=== PATIENT | female | born 1945 | race Caucasian/White ===

== ENCOUNTER 2018-04-11 06:39 | Day surgery (SDC) | payer MEDICARE, OTHER ==
[~2018-04-11] VITALS: Ht 162.6 cm; Wt 69.5 kg
[~2018-04-11 06:39] MED LIST: ALPR.25 PO; AMOX1XR PO; Advair Hfa 230-12 GM; Azor 10-20 MG1 EACH; CALTRATE 600 +1 EACH PO; CONEST.625 PO; CONESTTC VAG; FLUT.05NI; LEVSOD100 PO; LEVSOD88 PO; LORA1 PO; LOSA50 PO; NEPHROCAP PO; OMEG1CAP30; Omeprazole20 M1; TELM20 PO; TRAZ50 PO; VITAMIN D3 COM1 EACH PO
[2018-04-11] MEDS ORDERED: Potassium99 MG (07:30)
[2018-04-11] MEDS ORDERED: TEMA15 (07:30)
[2018-04-11] MEDS ORDERED: NEPHROCAPS QT1 EACH (07:31)
== END 2018-04-11 11:28 | disposition home or self-care (01) ==
LOC: ORSCSDS 06:39
PROVIDERS: Student in an Organized Health Care Education/Training Program
PROC: 0QSN04Z Reposition Right Metatarsal with Internal Fixation Device, Open Approach (ICD-10-PCS; principal; 2018-04-11 08:00)
PROC: 0SGP0ZZ (ICD-10-PCS; principal; 2018-04-11 08:00)
PROC: 0QSN0ZZ Reposition Right Metatarsal, Open Approach (ICD-10-PCS; principal; 2018-04-11 08:00)
PROC: 0QBN0ZZ Excision of Right Metatarsal, Open Approach (ICD-10-PCS; principal; 2018-04-11 08:00)
DX: M20.21 Hallux rigidus, right foot (principal); M20.41 Other hammer toe(s) (acquired), right foot; M21.621 Bunionette of right foot; M79.671 Pain in right foot; I10 Essential (primary) hypertension; E03.9 Hypothyroidism, unspecified; Z79.899 Other long term (current) drug therapy
CPT/HCPCS: C1776; J0690; J2250; J2405; J3010; J7120

== ENCOUNTER 2019-09-04 14:50 | Inpatient (IN) | payer MEDICARE, OTHER ==
[~2019-09-04] VITALS: Ht 162.6 cm; Wt 65.2 kg
[~2019-09-04 14:50] MED LIST changes: -Advair Hfa 230-12 GM; +Advair Hfa 230-12 GM INH; -CALTRATE 600 +1 EACH PO; +ERGO400 PO; +NEPHRO-VITE RX1 EACH PO; -Omeprazole20 M1; +Omeprazole20 M1 PO; +POTASSIUM99 MG PO; +TEMA15 PO
[2019-09-04 15:19] LABS: BASOPHILS ABSOLUTE AUTO 0.02 K/mm3 (0.00-0.23); BASOPHILS PERCENT AUTO 0 % (0-2); EOSINOPHILS ABSOLUTE AUTO 0.05 K/mm3 (0.00-0.68); EOSINOPHILS PERCENT AUTO 1 % (0-6); Hematocrit 36.9 % (33.0-51.0); Hemoglobin 12.6 g/dL (11.5-16.0); IMMATURE GRAN ABSOLUTE AUTO 0.03 K/mm3 (0.00-0.10); IMMATURE GRAN PERCENT AUTO 0 % (0-1); LYMPHOCYTES ABSOLUTE AUTO 1.81 K/mm3 (0.84-5.20); LYMPHOCYTES PERCENT AUTO 18 % (21-46); MONOCYTES ABSOLUTE AUTO 0.68 K/mm3 (0.16-1.47); MONOCYTES PERCENT AUTO 7 % (4-13); Mean Corpuscular HGB 31.9 pg (26.0-34.0); Mean Corpuscular HGB Conc 34.1 g/dL (31.5-36.5); Mean Corpuscular Volume 93 fL (80-100); Mean Platelet Volume 9.3 fL (9.1-12.4); NEUTROPHILS ABSOLUTE AUTO 7.37 K/mm3 (1.96-9.15); NEUTROPHILS PERCENT AUTO 74 % (41-73); Platelet Count 313 K/mm3 (150-400); RDW Coefficient Variation 12.4 % (11.7-14.2); RDW Standard Deviation 42.6 fL (35.1-46.3); Red Blood Cell Count 3.95 M/mm3 (3.80-5.20); White Blood Cell Count 9.96 K/mm3 (4.00-11.30)
[2019-09-04 15:46] LABS: Alanine Aminotransfer (ALT/SGP 15 U/L (12-78); Albumin, Blood 3.7 g/dL (3.4-5.0); Alk Phos 81 U/L (50-136); Anion Gap 10 mmol/L (6-16); Aspartate Aminotrans (AST/SGOT 13 U/L (12-37); Bilirubin, Total 0.5 mg/dL (0.1-1.0); Blood Urea Nitrogen 7 mg/dL (8-24); Bun/Creatinine Ratio 7.9 (12.0-20.0); CO2, Blood 24 mmol/L (21-32); Calcium, Blood 9.2 mg/dL (8.5-10.1); Chloride, Blood 93 mmol/L (98-108); Creatinine, Blood 0.88 mg/dL (0.40-1.00); Globulin, Blood 3.8 g/dL (2.2-4.0); Glomerular Filtration Rate >60 (60-); Glucose, Blood 143 mg/dL (70-99); Potassium, Blood 3.3 mmol/L (3.5-5.5); Sodium, Blood 127 mmol/L (136-145); Total Protein, Blood 7.5 g/dL (6.4-8.2)
[2019-09-04] MEDS ORDERED: LEVSOD125 PO (17:40)
[2019-09-04] MEDS ORDERED: ONDA4 PO (17:40)
[2019-09-04] MEDS ORDERED: TRAZ150T57 PO (17:40)
[2019-09-04] MEDS ORDERED: Azor 5-20 MG T1 EACH PO (17:42)
[2019-09-04 22:18] LABS: CHOL/HDL RATIO 2.8; Cholesterol 165 mg/dL (50-200); HDL Cholesterol 59 mg/dL (>39); LDL/HDL RATIO 1.5; Low Density Lipoprotein Chol 90 mg/dL (0-110); Triglycerides 82 mg/dL (30-160); Very Low Density Lipoprot Chol 16 mg/dL (6-32)
[2019-09-05 05:28] LABS: Hematocrit 31.7 % (33.0-51.0); Hemoglobin 10.7 g/dL (11.5-16.0); Mean Corpuscular HGB 31.8 pg (26.0-34.0); Mean Corpuscular HGB Conc 33.8 g/dL (31.5-36.5); Mean Corpuscular Volume 94 fL (80-100); Mean Platelet Volume 9.5 fL (9.1-12.4); Platelet Count 239 K/mm3 (150-400); RDW Coefficient Variation 12.7 % (11.7-14.2); RDW Standard Deviation 43.7 fL (35.1-46.3); Red Blood Cell Count 3.37 M/mm3 (3.80-5.20); White Blood Cell Count 6.46 K/mm3 (4.00-11.30)
--- NOTE | 2019-09-05 05:38 | NUR ---
ADMISSION NOTE/SHIFT SUMMARY PT NEW ER ADMIT EARLIER IN SHIFT. ARRIVED TO UNIT VIA STRETCHER, AMBULATED INDEPENDENTLY TO ROOM. ORIENTED PATIENT TO ROOM AND CALL LIGHT, ADMISSION COMPLETE. PT REPORTS INTERMITTENT N/V SINCE SUNDAY, WITH WORSENING SYMPTOMS SINCE YESTERDAY. PT REPORTS NOT BEING ABLE TO KEEP DOWN ANY FOOD OR FLUID. PAIN IS ACROSS UPPPER ABD, TENDER UPON PALPATION. STRICT NPO TO CONTROL PAIN, N/V. PT VERBALIZES UNDERSTANDING. PT RECIEVED 40 MEQ IV KCL, IV ZOSYN Q6H, 1 MG IV DILAUDID, PROTONIX DRIP, AND NS RUNNING @ 100 ML/HR X 1.5 BAG. TREATED FOR NAUSEA 1X WITH ZOFRAN AFTER RECIEVING PAIN MED. PT IS A&OX4, SBA IN . NO OTHER CHANGES TO REPORT. WILL CONT OT MONITOR AND PROVIDE CARE UNTIL PRESUMED BY ONCOMING RN.
[2019-09-05 06:02] LABS: Alanine Aminotransfer (ALT/SGP 12 U/L (12-78); Albumin, Blood 2.9 g/dL (3.4-5.0); Alk Phos 59 U/L (50-136); Anion Gap 5 mmol/L (6-16); Aspartate Aminotrans (AST/SGOT 5 U/L (12-37); Bilirubin, Total 0.4 mg/dL (0.1-1.0); Blood Urea Nitrogen 7 mg/dL (8-24); Bun/Creatinine Ratio 8.7 (12.0-20.0); CO2, Blood 27 mmol/L (21-32); Calcium, Blood 8.5 mg/dL (8.5-10.1); Chloride, Blood 101 mmol/L (98-108); Glomerular Filtration Rate >60 (60-); Glucose, Blood 111 mg/dL (70-99); Potassium, Blood 4.1 mmol/L (3.5-5.5); Sodium, Blood 133 mmol/L (136-145); Total Protein, Blood 5.9 g/dL (6.4-8.2)
--- NOTE | 2019-09-05 18:07 | NUR ---
NO ACUTE ISSUES NOTED. PATIENT TRIED A CLEAR LIQUID DINNER AND IS TOLERATING IT OK, SHE DID NOTE SOME MILD DISCONFORT BUT THINKS SHE JUST DRANK IT TO FAST. NO OTHER ISSUES NOTED AT THIS TIME. WILL CONTINUE TO MONITOR FOR CHANGES.
--- NOTE | 2019-09-05 19:50 | NUR ---
DISCOMFORT FOLLOWING CLEAR LIQUIDS PT REPORTS 4/10 SHARP PAIN TO UPPER ABD AFTER HAVING CLEAR BROTH. PT ALSO REPORTS NAUSEA, NO EMESIS. TREATED WITH 0.5 MG IV DILAUDID AND IV ZOFRAN. PROVIDES RELIEF. WILL CONT TO MONITOR.
[2019-09-06 04:43] LABS: Hematocrit 31.5 % (33.0-51.0); Hemoglobin 10.5 g/dL (11.5-16.0); Mean Corpuscular HGB 31.3 pg (26.0-34.0); Mean Corpuscular HGB Conc 33.3 g/dL (31.5-36.5); Mean Corpuscular Volume 94 fL (80-100); Mean Platelet Volume 9.1 fL (9.1-12.4); Platelet Count 211 K/mm3 (150-400); RDW Coefficient Variation 12.6 % (11.7-14.2); RDW Standard Deviation 43.6 fL (35.1-46.3); Red Blood Cell Count 3.36 M/mm3 (3.80-5.20); White Blood Cell Count 5.02 K/mm3 (4.00-11.30)
[2019-09-06 05:07] LABS: Anion Gap 7 mmol/L (6-16); Blood Urea Nitrogen 6 mg/dL (8-24); Bun/Creatinine Ratio 7.4 (12.0-20.0); CO2, Blood 25 mmol/L (21-32); Calcium, Blood 8.3 mg/dL (8.5-10.1); Chloride, Blood 103 mmol/L (98-108); Creatinine, Blood 0.81 mg/dL (0.40-1.00); Glomerular Filtration Rate >60 (60-); Glucose, Blood 82 mg/dL (70-99); Potassium, Blood 3.7 mmol/L (3.5-5.5); Sodium, Blood 135 mmol/L (136-145)
--- NOTE | 2019-09-06 05:27 | NUR ---
SHIFT SUMMARY PT TOLERATING WATER AND CHIPS WELL. DID NOT TOLERATE CHICKEN BROTH VERY WELL, IV DILAUDID AND IV ZOFRAN GIVEN ONCE AT START OF SHIFT FOR NAUSEA AND PAIN. ZOSYN DC'D; PROTONIX DC'D TONIGHT. PT A&OX4, INDEPENDENT IN RM. PT TO HAVE EGD TODAY PER DR IBARRA. NO OTHER CHANGES TO REPORT. WILL CONT TO MONITOR AND PROVIDE CARE UNTIL PRESUMED BY ONCOMING RN.
--- NOTE | 2019-09-06 08:52 | NUR ---
History, Chart, Medications and Allergies reviewed before start of procedure. Patient confirms NPO status and agrees with scheduled surgery. Lungs clear T/O to Auscultation. Pre-Op teaching done. Pt verbalizes understanding.
--- NOTE | 2019-09-06 09:14 | NUR ---
09/06/19 0914 Tonya Christy PATIENT DETERMINED TO BE ASA APPROPRIATE FOR PROPOFOL SEDATION PRIOR TO START OF PROCEDURE BY DR. IBARRA. 3-LEAD EKG REVIEWED WITH PHYSICIAN PRIOR TO START OF PROCEDURE. PATIENT CONFIRMS NPO STATUS AND AGREES WITH SCHEDULED PROCEDURE. History, Chart, Medications and Allergies reviewed before start of procedure. MONITOR INTACT WITH CONTINUOUS PULSE OXIMETRY AND INTERMITTENT BP. O2 VIA N/C INTACT THROUGHOUT SEDATION/PROCEDURE 3L NC. Bite Block Placed IMMEDIATELY PRESEDATION.
--- NOTE | 2019-09-06 18:02 | NUR ---
SHIFT SUMMARY NO ACUTE CHANGES. PATIENT DENIES PAIN, NAUSEA, AND SHORTNESS OF BREATH. ABDOMEN IS TENDER TO PALPATION. PATIENT TOLERATING CLEAR LIQUID DIET WELL. PATIENT HAD ENDOSCOPY THIS MORNING. PATIENT UP INDEPENDENT IN THE ROOM. CALL LIGHT IN REACH.
--- NOTE | 2019-09-06 22:33 | NUR ---
PT HAS NOT HAD BM FOR 6 DAYS. DISCUSSED WITH PT THAT A SUPPOSITORY WOULD BE APPROPRIATE AT THIS POINT, PT WAS AGREEABLE TO SUPPOSITORY. CALLED DR LANGFORD AND RECIEVED ORDER FOR DULCOLAX SUPPOSITORY. PT THEN REFUSED SUPPOSITORY UNTIL AM, STATING "I WANT TO SLEEP TONIGHT, NOT BE UP ALL NIGHT POOPING." EXPLAINED TO PT IT WOULD NOT KEEP HER UP ALL NIGHT AFTER BM, PT STILL INSISTS ON AM.
[2019-09-07 05:02] LABS: Hematocrit 31.1 % (33.0-51.0); Hemoglobin 10.6 g/dL (11.5-16.0); Mean Corpuscular HGB 31.7 pg (26.0-34.0); Mean Corpuscular HGB Conc 34.1 g/dL (31.5-36.5); Mean Corpuscular Volume 93 fL (80-100); Mean Platelet Volume 9.4 fL (9.1-12.4); Platelet Count 273 K/mm3 (150-400); RDW Coefficient Variation 12.6 % (11.7-14.2); RDW Standard Deviation 43.3 fL (35.1-46.3); Red Blood Cell Count 3.34 M/mm3 (3.80-5.20); White Blood Cell Count 5.34 K/mm3 (4.00-11.30)
--- NOTE | 2019-09-07 05:14 | NUR ---
SHIFT SUMMARY NO ACUTE CHANGES OVERNIGHT. PT HAS NOT HAD A BM FOR ONE WEEK NOW, WAS AGREEABLE TO SUPPOSITORY. AFTER GETTING SUPPOSITORY ORDERED, PT REFUSED IT AND REQUESTED TO WAIT TIL AM. PT DID DRINK 2 CUPS WARM PRUNE JUICE AND BUTTER, NO BM. TOLERATED THAT WELL, NO PAIN OR N/V ASSOCIATED WITH FULL LIQUID. WILL CONT TO MONITOR AND PROVIDE CARE UNTIL PRESUMED BY ONCOMING RN.
[2019-09-07 05:30] LABS: Anion Gap 10 mmol/L (6-16); Blood Urea Nitrogen 7 mg/dL (8-24); Bun/Creatinine Ratio 8.8 (12.0-20.0); CO2, Blood 24 mmol/L (21-32); Calcium, Blood 8.6 mg/dL (8.5-10.1); Chloride, Blood 100 mmol/L (98-108); Creatinine, Blood 0.79 mg/dL (0.40-1.00); Glomerular Filtration Rate >60 (60-); Glucose, Blood 108 mg/dL (70-99); Potassium, Blood 3.6 mmol/L (3.5-5.5); Sodium, Blood 134 mmol/L (136-145)
--- NOTE | 2019-09-07 13:28 | NUR ---
DISCHARGE DISCHARGE MEDICATION AND INSTRUCTIONS EXPLAINED TO PATIENT. PATIENT STATED UNDERSTANDING. CARE MANAGEMENT TO CALL PATIENT AT HOME WITH FOLLOW UP APPOINTMENTS WITH PCP AND DR. IBARRA. IV REMOVED WITHOUT DIFFICULTY. BELONGINGS WITH PATIENT. PATIENT AMBULATED TO PRIVATE VEHICLE.
== END 2019-09-07 13:25 | disposition home or self-care (01) | DRG 439 ==
LOC: ER 14:50 → MEDS 14:51 → ENPENDDIS 09-07 10:58 → MEDS 09-07 13:25
PROVIDERS: Internal Medicine; Internal Medicine Gastroenterology; Physician Assistant; ADMIT Internal Medicine
PROC: 0DB68ZX Excision of Stomach, Via Natural or Artificial Opening Endoscopic, Diagnostic (ICD-10-PCS; 2019-09-06)
PROC: 0DB98ZX Excision of Duodenum, Via Natural or Artificial Opening Endoscopic, Diagnostic (ICD-10-PCS; principal; 2019-09-06 09:30)
DX: K85.90 Acute pancreatitis without necrosis or infection, unspecified (principal); E87.1 Hypo-osmolality and hyponatremia; I10 Essential (primary) hypertension; K21.9 Gastro-esophageal reflux disease without esophagitis; E03.9 Hypothyroidism, unspecified; J45.909 Unspecified asthma, uncomplicated; E87.6 Hypokalemia; K44.9 Diaphragmatic hernia without obstruction or gangrene; K29.80 Duodenitis without bleeding
CPT/HCPCS: 36415; 74170; 76700; 80048; 80053; 80061; 82150; 83690; 85025; 85027; 88305; 88342; 96365; 96375; 99285-25; C9113; J0696; J1170; J1650; J2405; J2543; J2704; J3480; J7030; J7120; Q9967

== ENCOUNTER 2019-09-11 09:03 | Inpatient (IN) | payer MEDICARE, OTHER ==
[~2019-09-11] VITALS: Ht 162.6 cm; Wt 144.3 kg
[~2019-09-11 09:03] MED LIST changes: +Azor 5-20 MG T1 EACH PO; +LEVSOD125 PO; +ONDA4 PO; +TRAZ150T57 PO
[2019-09-11 09:32] LABS: BASOPHILS ABSOLUTE AUTO 0.03 K/mm3 (0.00-0.23); BASOPHILS PERCENT AUTO 0 % (0-2); EOSINOPHILS ABSOLUTE AUTO 0.01 K/mm3 (0.00-0.68); EOSINOPHILS PERCENT AUTO 0 % (0-6); Hematocrit 40.7 % (33.0-51.0); Hemoglobin 13.9 g/dL (11.5-16.0); IMMATURE GRAN ABSOLUTE AUTO 0.04 K/mm3 (0.00-0.10); IMMATURE GRAN PERCENT AUTO 0 % (0-1); LYMPHOCYTES ABSOLUTE AUTO 1.86 K/mm3 (0.84-5.20); LYMPHOCYTES PERCENT AUTO 15 % (21-46); MONOCYTES ABSOLUTE AUTO 0.98 K/mm3 (0.16-1.47); MONOCYTES PERCENT AUTO 8 % (4-13); Mean Corpuscular HGB 30.6 pg (26.0-34.0); Mean Corpuscular HGB Conc 34.2 g/dL (31.5-36.5); Mean Platelet Volume 9.3 fL (9.1-12.4); NEUTROPHILS ABSOLUTE AUTO 9.55 K/mm3 (1.96-9.15); NEUTROPHILS PERCENT AUTO 77 % (41-73); Platelet Count 436 K/mm3 (150-400); RDW Coefficient Variation 12.7 % (11.7-14.2); RDW Standard Deviation 41.6 fL (35.1-46.3); Red Blood Cell Count 4.54 M/mm3 (3.80-5.20); White Blood Cell Count 12.47 K/mm3 (4.00-11.30)
[2019-09-11 09:33] LABS: Mean Corpuscular Volume 90 fL (80-100)
[2019-09-11 09:41] LABS: Albumin, Blood 4.3 g/dL (3.4-5.0); Bilirubin, Total 0.5 mg/dL (0.1-1.0); Bun/Creatinine Ratio 18.9 (12.0-20.0); Calcium, Blood 10.4 mg/dL (8.5-10.1); Creatinine, Blood 1.22 mg/dL (0.40-1.00); Globulin, Blood 4.2 g/dL (2.2-4.0); Potassium, Blood 3.8 mmol/L (3.5-5.5); Total Protein, Blood 8.5 g/dL (6.4-8.2)
--- NOTE | 2019-09-11 17:02 | NUR ---
SUMMARY PT ADMITTED FROM THE ER WITH PANCREATITIS, PT IS ALERT AND ORIENTED AND UP WITH MIN ASSIST, PT ARRIVED WITH SLIGHT NAUSEA THAT HAS SUBSIDED, ORIENTED PT TO THE ROOM AND CALL SYSTEM, NO COMPLAINTS, WILL CONT TO MONITOR
--- NOTE | 2019-09-12 04:39 | NUR ---
SHIFT SUMMARY PT SLEPT THROUGH MOST OF THE NIGHT. OVERALL, PT NOT FEELING WELL WHEN AWAKE. HOWEVER, PT RATHER SLEEPY THIS EVENING. CONTINUED TO HAVE NAUSEA. MEDICATED PER EMAR. COMPLAINED ONCE OF SOME MILD ABD PAIN, OTHERWISE DENIED THROUGHOUT THE NIGHT. MEDICATED BY ORNAMENTAL IRON WORKER HELPERRUBIA Pastor WHILE THIS RN WAS BUSY WITH ANOTHER PATIENT. PT NPO EXCEPT ICE CHIPS. NS W/ 20 OF K RUNNING AT 100 ML/HR. VITAL SIGNS STABLE. WILL CONTINUE TO MONITOR.
[2019-09-12 05:18] LABS: BASOPHILS ABSOLUTE AUTO 0.03 K/mm3 (0.00-0.23); BASOPHILS PERCENT AUTO 0 % (0-2); EOSINOPHILS ABSOLUTE AUTO 0.01 K/mm3 (0.00-0.68); EOSINOPHILS PERCENT AUTO 0 % (0-6); Hematocrit 36.1 % (33.0-51.0); Hemoglobin 12.1 g/dL (11.5-16.0); IMMATURE GRAN ABSOLUTE AUTO 0.04 K/mm3 (0.00-0.10); IMMATURE GRAN PERCENT AUTO 0 % (0-1); LYMPHOCYTES ABSOLUTE AUTO 1.54 K/mm3 (0.84-5.20); LYMPHOCYTES PERCENT AUTO 16 % (21-46); MONOCYTES ABSOLUTE AUTO 0.99 K/mm3 (0.16-1.47); MONOCYTES PERCENT AUTO 10 % (4-13); Mean Corpuscular HGB 31.4 pg (26.0-34.0); Mean Corpuscular HGB Conc 33.5 g/dL (31.5-36.5); Mean Corpuscular Volume 94 fL (80-100); Mean Platelet Volume 9.4 fL (9.1-12.4); NEUTROPHILS ABSOLUTE AUTO 7.18 K/mm3 (1.96-9.15); NEUTROPHILS PERCENT AUTO 73 % (41-73); Platelet Count 254 K/mm3 (150-400); RDW Coefficient Variation 12.5 % (11.7-14.2); RDW Standard Deviation 43.3 fL (35.1-46.3); Red Blood Cell Count 3.85 M/mm3 (3.80-5.20); White Blood Cell Count 9.79 K/mm3 (4.00-11.30)
[2019-09-12 05:44] LABS: Alanine Aminotransfer (ALT/SGP 16 U/L (12-78); Albumin, Blood 3.4 g/dL (3.4-5.0); Alk Phos 79 U/L (50-136); Anion Gap 7 mmol/L (6-16); Aspartate Aminotrans (AST/SGOT 13 U/L (12-37); Bilirubin, Total 0.5 mg/dL (0.1-1.0); Blood Urea Nitrogen 17 mg/dL (8-24); Bun/Creatinine Ratio 22.1 (12.0-20.0); CO2, Blood 26 mmol/L (21-32); Calcium, Blood 8.9 mg/dL (8.5-10.1); Chloride, Blood 99 mmol/L (98-108); Creatinine, Blood 0.77 mg/dL (0.40-1.00); Globulin, Blood 3.5 g/dL (2.2-4.0); Glomerular Filtration Rate >60 (60-); Glucose, Blood 124 mg/dL (70-99); Potassium, Blood 3.6 mmol/L (3.5-5.5); Sodium, Blood 132 mmol/L (136-145); Total Protein, Blood 6.9 g/dL (6.4-8.2)
[2019-09-12 09:19] LABS: Carcinoembryonic Antigen 1.6 ng/mL (0.0-3.0)
[2019-09-12 09:31] LABS: Cancer Antigen 19-9 2041.6 U/mL (2.0-37.0)
--- NOTE | 2019-09-12 17:44 | NUR ---
PT ALERT AND ORIENTED. PT INDEPENDENT IN ROOM. PT VOMITED MULTIPLE TIMES THIS AM. PT ADMINISTERED ZOFRAN THEN LATER PHENERGAN WITH PT STILL VOMITING AFTER. DR GRAMAJO NOTIFIED AND COMPAZINE ORDERED, WHICH HELPED PT WITH NAUSEA AND VOMITING. DR WILLS CONSULTED WITH THE PT THIS AFTERNOON AND ORDERED MRI TO BE COMPLETE, MOST LIKELY TOMORROW. PT HAS HAD AND DAUGHTER HAVE BEEN IN THE ROOM DURING THIS SHIFT. PT REMAINS NPO WITH ONLY ICE CHIPS. PT COMPLAINS OF CONCERNS OF GROWING WEAKNESS, DR GRAMAJO ORDERED CLINIMIX TO HELP OFFSET THIS. PT CURRENTLY RESTING IN ROOM, DENIES NAUSEA AT THIS TIME. CALL LIGHT IN REACH. WILL CONTINUE TO MONITOR.
--- NOTE | 2019-09-13 04:04 | NUR ---
SHIFT SUMMARY PT HAD COMPLAINTS OF PAIN IN BEGINNING OF SHIFT BUT TREATED PER EMAR. SHE HAS HAD SOME COMPLAINTS OF ACID REFLUX. SHE APPEARS TO BE SLEEPING COMFORTABLY NOW. NO OTHER COMPLAINTS THIS SHIFT. WILL CONTINUE TO MONITOR.
[2019-09-13 05:24] LABS: Albumin, Blood 3.2 g/dL (3.4-5.0); Anion Gap 6 mmol/L (6-16); Blood Urea Nitrogen 26 mg/dL (8-24); Bun/Creatinine Ratio 35.7 (12.0-20.0); CO2, Blood 26 mmol/L (21-32); Calcium, Blood 8.9 mg/dL (8.5-10.1); Chloride, Blood 97 mmol/L (98-108); Creatinine, Blood 0.73 mg/dL (0.40-1.00); Glomerular Filtration Rate >60 (60-); Glucose, Blood 170 mg/dL (70-99); Potassium, Blood 3.7 mmol/L (3.5-5.5); Sodium, Blood 129 mmol/L (136-145)
--- NOTE | 2019-09-13 15:02 | NUR ---
NGT INSERTION PT TOLERATED NGT INSERTION WELL. PT DID VOMIT DURING PROCEDURE. MOUTH NOW CLEAN & CLEAR. 2L OF BROWNISH GREEN FLUID REMOVED. DR. WILLS NOTIFIED. PT CONTINUED TO BE ALLOWED ICE CHIPS. WILL CONTINUE TO MONITOR.
--- NOTE | 2019-09-13 18:41 | NUR ---
SHIFT SUMMARY PT NGT DRAINING WELL ON LOW INTERMITTEN SUCTION. 2,600CC OUTPUT TOTAL FOR THIS SHIFT. PT C/O THROAT & NOSE PAIN AFTER PLACEMENT. PT EDUCATED ON THIS BEING A NORMAL SYMPTOM. PT ABD PAIN IMPROVED. NAUSEA IMPROVING. NO FURTHER VOMITING. NO OTHER CHANGES IN ASSESSMENT AT THIS TIME. VSS. PT MEDICATED FOR PAIN 2X THIS SHIFT. NO OTHER CHANGES IN ASSESSMENT AT THIS TIME.
--- NOTE | 2019-09-14 03:55 | NUR ---
SHIFT SUMMARY NO ACUTE CHANGES THIS SHIFT. PT TOLERATING NG TUBE AND SEEMS TO BE RESTING COMFORTABLY. WILL CONTINUE TO MONITOR.
[2019-09-14 04:57] LABS: Albumin, Blood 2.5 g/dL (3.4-5.0); Anion Gap 6 mmol/L (6-16); Blood Urea Nitrogen 21 mg/dL (8-24); Bun/Creatinine Ratio 32.7 (12.0-20.0); CO2, Blood 26 mmol/L (21-32); Calcium, Blood 7.9 mg/dL (8.5-10.1); Chloride, Blood 101 mmol/L (98-108); Creatinine, Blood 0.64 mg/dL (0.40-1.00); Glomerular Filtration Rate >60 (60-); Glucose, Blood 130 mg/dL (70-99); Phosphorus, Blood 2.4 mg/dL (2.5-4.9); Potassium, Blood 3.2 mmol/L (3.5-5.5); Sodium, Blood 133 mmol/L (136-145)
--- NOTE | 2019-09-14 17:49 | NUR ---
SHIFT SUMMARY PT NGT ON LOW INTERMITTEN SUCTION. PT DRAINED 1500CC TOTAL THIS SHIFT. LIGHT BROWN FLUID. HURRICAINE SPRAY ORDERED FOR COMFORT. PT VOIDING WELL. CLINIMIX RUNNING 75 AN HOUR. LAST BAG OF NS FINISHING AT 100ML/HR. NO OTHER CHANGES IN ASSESSMENT AT THIS TIME. VSS. PT STILL NPO EXCEPT ICE CHIPS. MEDICATED FOR PAIN ONCE THIS SHIFT. PT HAS DENIED NAUSEA THIS AFTERNOON & REFUSED HER LAST TWO DOSES OF REGLAN. NO OTHER CHANGES IN ASSESSMENT AT THIS TIME. VSS. WILL CONTINUE TO MONITOR UNTIL TURNOVER IS COMPLETE.
--- NOTE | 2019-09-15 03:37 | NUR ---
SHIFT SUMMARY PT HAVING TROUBLE WITH PAIN IN THROAT THROUGHOUT SHIFT DUE TO NG TUBE. SHE REFUSES HURRICANE SPRAY BECAUSE SHE SAYS IT DOES NOT HELP AND IT VASQUEZ. WE HAVE MEDICATED PER EMAR AND SHE EATS ICE CHIPS PRN. NO OTHER CHANGES. WILL CONTINUE TO MONITOR.
[2019-09-15 05:37] LABS: Anion Gap 7 mmol/L (6-16); Blood Urea Nitrogen 18 mg/dL (8-24); Bun/Creatinine Ratio 28.8 (12.0-20.0); CO2, Blood 27 mmol/L (21-32); Calcium, Blood 8.8 mg/dL (8.5-10.1); Chloride, Blood 98 mmol/L (98-108); Creatinine, Blood 0.62 mg/dL (0.40-1.00); Glomerular Filtration Rate >60 (60-); Glucose, Blood 130 mg/dL (70-99); Phosphorus, Blood 2.6 mg/dL (2.5-4.9); Potassium, Blood 3.6 mmol/L (3.5-5.5); Sodium, Blood 132 mmol/L (136-145); Triglycerides 179 mg/dL (30-160)
--- NOTE | 2019-09-15 08:27 | NUR ---
PATIENT DID NOT EAT BREAKFAST THIS SHIFT DUE TO BEING NPO AT THIS TIME.
--- NOTE | 2019-09-15 12:44 | NUR ---
PATIENT DID NOT EAT LUNCH THIS SHIFT DUE TO BEING NPO AT THIS TIME.
--- NOTE | 2019-09-15 17:30 | NUR ---
Dr. Tijerina returned call about consult. Stated he will not be seeing patient d/t unknown malignancy.
--- NOTE | 2019-09-15 17:51 | NUR ---
Shift Summary A/Ox4. Patient has been cooperative with care. Denies N/V and has been declining Reglan. Medicated for throat pain x 2. SBA, NG-tube on low suction and draining. Dr. Eric following patient, plan is to transfer to [facility]. No bed is available at this time, transfer service will notify Medical floor when bed is available. Patient and family has been notified of this. Dr. Carloz Brady will be the receiving doctor at [facility]. VSS, afebrile. No acute changes this shift.
--- NOTE | 2019-09-15 18:46 | NUR ---
PATIENT DID NOT EAT DINNER THIS SHIFT DUE TO BEING NPO AT THIS TIME.
--- NOTE | 2019-09-16 03:46 | NUR ---
73 year old Female with high grade duodenal obstruction due to intraabdominal cysts and acute pancereatitis. Duodenal bx 09/08/19 negative for malignancy. MRI of abd show active duodenitis. PT has patent ng tube draining larg amts of thin green /brown fluids. PT has no active abd pain, she does co frequent pain in throat from NG tube. PT continues on clinimix and lipis. BGs Q 6 hours stable, DC per oder Q 6 hours until stable. Medicated several times for thraot pain with fentanyl 50 mcg with helpful effect. Denies nausea on NG tube. Pt has plan to transfer to [facility] for continued treatment of active duodenitis to care of DR Carloz Brady. Up indep in room voids large amts of clear urine. Nofified Hospitalist DR LOPEZ of pending [facility] transfer , he said to call when room available. Spouse asks to be called with dc plan update.
--- NOTE | 2019-09-16 08:34 | NUR ---
PATIENT DID NOT EAT BREAKFAST THIS SHIFT DUE TO BEING NPO AT THIS TIME.
--- NOTE | 2019-09-16 10:17 | NUR ---
UPDATE PENDING [facility] TRANSFER TO [facility] SPOKE WITH TRANSFER COORDINATER. PT IS ON THE LIST WAITING FOR BED AVAILABLITY, "HOPEFULLY LATER TODAY OR TOMORROW"
--- NOTE | 2019-09-16 18:41 | NUR ---
Shift Summary A/Ox4. Pleasant and cooperative c care. Denies pain, N/V. Continues to decline scheduled Reglan. No c/o pain, only throat discomfort from NG tube, declined numbing spray. NG output was 360cc, dark greenish bile. Educated on aspiration risk r/t NG tube. L/S mild wheezes T/O c fine crackles at bases. Plan remains the same: transfer to [facility] pending bed availability. No other acute changes this shift.
--- NOTE | 2019-09-16 20:23 | NUR ---
[facility] called and said there is no bed available tonight for [facility] transfer. PT orders on wrong chart per verbal order from DR Keiko May order. [facility] to keep us posted on available bed for transfer to tx gastric outlet obstruction. Continues on clinimix for nuritional support, NPO and NG tube to low intermittant sx. Continues to deny abd pain.
--- NOTE | 2019-09-17 07:16 | NUR ---
pt continues without abd pain, denies nausea. Continues to co sore throat from NG tube. Hurricane spray with mild helpful effect. Fentanyl 50 mcg x 2 for throat pain. NG drains large amts of thin green brown gi contents. continues on clinimix for nutritional support. [facility] transfer pending, they said they anticipate a bed soon for GI care for gastric outlet obstuction. VSS
[2019-09-17 08:51] LABS: Albumin, Blood 2.7 g/dL (3.4-5.0); Anion Gap 6 mmol/L (6-16); Blood Urea Nitrogen 18 mg/dL (8-24); Bun/Creatinine Ratio 25.4 (12.0-20.0); CO2, Blood 27 mmol/L (21-32); Calcium, Blood 8.7 mg/dL (8.5-10.1); Chloride, Blood 96 mmol/L (98-108); Creatinine, Blood 0.71 mg/dL (0.40-1.00); Glomerular Filtration Rate >60 (60-); Glucose, Blood 143 mg/dL (70-99); Phosphorus, Blood 3.3 mg/dL (2.5-4.9); Potassium, Blood 3.6 mmol/L (3.5-5.5); Sodium, Blood 129 mmol/L (136-145)
--- NOTE | 2019-09-17 18:24 | NUR ---
SHIFT SUMMARY: NO ACUTE CHANGES TO REPORT THIS SHIFT. PT CONTINUES TO C/O THROAT PAIN; MEDICATED c HURRICAINE THROAT SPRAY, CEPACOL LOZENGES, FENTANYL 50 MCG X1. NO C/O NAUSEA; PT REFUSING SCHEDULED REGLAN. NG TUBE DRAINING LARGE QUANTITY THIN GREEN/BROWN LIQUID; NG TUBE AT INTERMITTENT LOW SUCTION. PATIENT REMAINS NPO; CLINIMIX @ 75 FOR NUTRITIONAL SUPPORT. AWAITING BED AT [facility]; PATIENT BECOMING AGITATED AT WAITING. WCTM.
--- NOTE | 2019-09-18 02:56 | NUR ---
[facility] CALLED TO GIVE BED ASSIGNMENT FOR PT. NURSING MEDICAL LIBRARY ASSISTANT NOTIFIED. HOSPITALIST NOTIFIED AND WILL PUT IN TRANSFER ORDERS.
--- NOTE | 2019-09-18 03:33 | NUR ---
REPORT CALLED AND GIVEN TO SHARON ALLRED RN. [facility] NOTIFIED OF GUN STOCK MAKER AND TRANSPORT OF PT. [facility] UNABLE TO TRANSPORT UNTIL 0600. [facility] TRANSFER STATION CALLED TO INFORM THEM PT WOULD NOT BE LEAVING UNTIL 0600. PER TRANSFER STAFF THAT IS OKAY, BED WOULD BE HELD ON 10A ROOM 46.
--- NOTE | 2019-09-18 07:55 | NUR ---
0650: TRANSPORT ARRIVED TO TAKE PATIENT TO [facility]. PATIENT LEFT THE MEDICAL FLOOR.
== END 2019-09-18 06:33 | disposition short-term general hospital (02) | DRG 439 ==
LOC: ER 09:03 → MEDS 09:04
PROVIDERS: Emergency Medicine; Internal Medicine; Nurse Practitioner Acute Care; ADMIT Internal Medicine
PROC: 0D9670Z Drainage of Stomach with Drainage Device, Via Natural or Artificial Opening (ICD-10-PCS; principal; 2019-09-13)
DX: K85.90 Acute pancreatitis without necrosis or infection, unspecified (principal); E87.1 Hypo-osmolality and hyponatremia; N17.9 Acute kidney failure, unspecified; K86.2 Cyst of pancreas; K31.5 Obstruction of duodenum; E87.6 Hypokalemia; I10 Essential (primary) hypertension; E03.9 Hypothyroidism, unspecified; E86.0 Dehydration; E83.39 Other disorders of phosphorus metabolism; K29.80 Duodenitis without bleeding; G47.00 Insomnia, unspecified; K21.9 Gastro-esophageal reflux disease without esophagitis; Z88.5 Allergy status to narcotic agent; Z88.2 Allergy status to sulfonamides
CPT/HCPCS: 36415; 74022; 74183; 80053; 80069; 82378; 82947; 83690; 83735; 84478; 85025; 86301; 90686; 94667; 94760; 96361; 96372; 96374; 96375; 96376; 97161; 99285-25; A9577; C9113; G0008; G0378; J0780; J1170; J1650; J2405; J2550; J2765; J3010; J3480; J7030; J7060; J7120

== ENCOUNTER 2019-10-28 10:08 | Day surgery (SDC) | payer MEDICARE, OTHER ==
[2019-10-28] MEDS ORDERED: ELIQUIS5 M2 PO (14:06)
[2019-12-01] MEDS ORDERED: TRAM50 PO (16:50)
[2019-12-01] MEDS ORDERED: ATOR10 PO (16:50)
[2019-12-01] MEDS ORDERED: Amlodipine-Ben1 EACH PO (16:50)
[2019-12-01] MEDS ORDERED: ALPR1 PO (16:51)
== END 2019-10-28 16:05 | disposition home or self-care (01) ==
LOC: ATC 10:08
PROC: 30243N1 Transfusion of Nonautologous Red Blood Cells into Central Vein, Percutaneous Approach (ICD-10-PCS; principal; 2019-10-28)
DX: C25.0 Malignant neoplasm of head of pancreas (principal); D64.9 Anemia, unspecified; M19.90 Unspecified osteoarthritis, unspecified site; I10 Essential (primary) hypertension; E03.9 Hypothyroidism, unspecified; Z90.710 Acquired absence of both cervix and uterus; Z88.5 Allergy status to narcotic agent; Z79.899 Other long term (current) drug therapy
CPT/HCPCS: 36430; 86850; 86900; 86901; 86923; J7050; P9016

== ENCOUNTER 2019-12-02 09:46 | Day surgery (SDC) | payer MEDICARE, OTHER ==
[~2019-12-02] VITALS: Ht 160 cm; Wt 144.0 kg
[~2019-12-02 09:46] MED LIST changes: +ALPR1 PO; +ATOR10 PO; +Amlodipine-Ben1 EACH PO; +ELIQUIS5 M2 PO; +TRAM50 PO
[2019-12-02] MEDS ORDERED: ONDA4 (10:32)
[2019-12-02] MEDS ORDERED: PROM25 (10:32)
--- NOTE | 2019-12-02 14:48 | NUR ---
7906 PATIENT RETUREND TO THE BEDSIDE, CONNECTED TOT HE MONITOR AND DAUGHTER AT THE BEDSIDE. DR. RODRÍGUEZ AT THE BEDSIDE AND SPOKE WITH THE PATIENT AND DAUGHTER. ALL QUESTIONS ANSWERED. NO PAIN NOTED FROM THE PATIENT AT THIS TIME.
--- NOTE | 2019-12-02 15:55 | NUR ---
1600 PATIENT IS EATING MEAL TRAY AND TOLERATING WELL. VVS. NO PAIN, NO NAUSEA. PATIENT UP AND DRESSED. REVIUEWED DISCHARGE INSTRUCTIONS. NO QUESTIONS OR UNANSWERED QUESTIONS.
--- NOTE | 2019-12-02 16:02 | NUR ---
1605 PIV DISCONTINUED. ECG STICKERS REMOVED. PATIENT UP AND DRESSED, DENIES PAIN, N/V, DIZZINESS. 1620 DISCHARGED HOME VIA WHEELCHAIR WITH DAUGHTER DRIVING.
== END 2019-12-02 16:19 | disposition home or self-care (01) ==
LOC: MHTC 09:46
DX: K94.13 Enterostomy malfunction (principal); C25.9 Malignant neoplasm of pancreas, unspecified; I10 Essential (primary) hypertension; K21.9 Gastro-esophageal reflux disease without esophagitis; J45.909 Unspecified asthma, uncomplicated; Z88.2 Allergy status to sulfonamides; Z88.5 Allergy status to narcotic agent; Z79.899 Other long term (current) drug therapy
CPT/HCPCS: 49450; 49451; 99152; 99153; C1725; C1729; C1769; C1887; J2250; J3010; J7030; Q9967

== ENCOUNTER 2020-01-22 10:25 | Day surgery (SDC) | payer MEDICARE, OTHER ==
[~2020-01-22] VITALS: Ht 160 cm; Wt 71.0 kg
[~2020-01-22 10:25] MED LIST changes: +Lotrel 5-40 MG1 EACH PO; +ONDA4; +PROM25
== END 2020-01-22 13:56 | disposition home or self-care (01) ==
LOC: MHTC 10:25 → ORSCMMR 10:56 → MHTC 11:19
PROC: 0D20XUZ Change Feeding Device in Upper Intestinal Tract, External Approach (ICD-10-PCS; principal; 2020-01-22)
PROC: 0D2DXUZ Change Feeding Device in Lower Intestinal Tract, External Approach (ICD-10-PCS; principal; 2020-01-22)
DX: K94.29 Other complications of gastrostomy (principal); K94.19 Other complications of enterostomy; I10 Essential (primary) hypertension; C25.9 Malignant neoplasm of pancreas, unspecified; Z88.5 Allergy status to narcotic agent; Z88.2 Allergy status to sulfonamides; Z79.899 Other long term (current) drug therapy
CPT/HCPCS: 49450; 49451; 99152; 99153; C1729; C1769; J2250; J3010; J7040; Q9967

== ENCOUNTER 2020-02-03 08:27 | Day surgery (SDC) | payer MEDICARE, OTHER ==
[~2020-02-03] VITALS: Ht 160 cm; Wt 67.4 kg
[~2020-02-03 08:27] MED LIST changes: -LEVSOD125 PO; +LEVSOD137 PO
--- NOTE | 2020-02-03 09:04 | NUR ---
History, Chart, Medications and Allergies reviewed before start of procedure. Patient confirms NPO status and agrees with scheduled surgery. Patient States Post-Procedure ride home has been arranged with her .
--- NOTE | 2020-02-03 12:22 | NUR ---
DR KIDD STATES MEDIPORT IN GOOD PLACEMENT
--- NOTE | 2020-02-03 13:06 | NUR ---
Dressing x2 gauze/clear to right chest wall clean, dry, intact with no visible drainage, swelling, erythema or bruising noted. VSS. Denies pain or nausea. Tolerating water PO. Gait steady. XRay to verify correct placement ok per Claudine Hatfield RN, PACU nurse. Discharge instructions reviewed with patient. Patient verbalizes understanding. Copy given to patient to take home. No prescriptions to fill.
== END 2020-02-03 13:05 | disposition home or self-care (01) ==
LOC: ORSCMMR 08:27 → ORD 02-05 11:15
PROVIDERS: Surgery
PROC: B5131ZA Fluoroscopy of Right Jugular Veins using Low Osmolar Contrast, Guidance (ICD-10-PCS; principal; 2020-02-03 10:00)
PROC: 05HM33Z Insertion of Infusion Device into Right Internal Jugular Vein, Percutaneous Approach (ICD-10-PCS; principal; 2020-02-03 10:00)
DX: C25.9 Malignant neoplasm of pancreas, unspecified (principal); I10 Essential (primary) hypertension; E78.00 Pure hypercholesterolemia, unspecified; K21.9 Gastro-esophageal reflux disease without esophagitis; Z79.899 Other long term (current) drug therapy
CPT/HCPCS: 77001; C1788; J0690; J1642; J2250; J2704; J3010; J7120

== ENCOUNTER → 2020-07-12 | Outpatient (CLI) | payer MEDICARE, OTHER ==
[2020-07-12 17:14] LABS: BASOPHILS ABSOLUTE AUTO 0.03 K/mm3 (0.00-0.23); BASOPHILS PERCENT AUTO 0 % (0-2); EOSINOPHILS ABSOLUTE AUTO 0.12 K/mm3 (0.00-0.68); EOSINOPHILS PERCENT AUTO 1 % (0-6); Hematocrit 21.4 % (33.0-51.0); Hemoglobin 6.8 g/dL (11.5-16.0); IMMATURE GRAN ABSOLUTE AUTO 0.22 K/mm3 (0.00-0.10); IMMATURE GRAN PERCENT AUTO 2 % (0-1); LYMPHOCYTES ABSOLUTE AUTO 3.54 K/mm3 (0.84-5.20); LYMPHOCYTES PERCENT AUTO 34 % (21-46); MONOCYTES PERCENT AUTO 11 % (4-13); Mean Corpuscular HGB 28.6 pg (26.0-34.0); Mean Corpuscular HGB Conc 31.8 g/dL (31.5-36.5); Mean Corpuscular Volume 90 fL (80-100); Mean Platelet Volume 10.5 fL (9.1-12.4); NEUTROPHILS ABSOLUTE AUTO 5.45 K/mm3 (1.96-9.15); NEUTROPHILS PERCENT AUTO 52 % (41-73); Platelet Count 274 K/mm3 (150-400); RDW Coefficient Variation 17.1 % (11.7-14.2); RDW Standard Deviation 55.2 fL (35.1-46.3); Red Blood Cell Count 2.38 M/mm3 (3.80-5.20); White Blood Cell Count 10.46 K/mm3 (4.00-11.30)
[2020-07-12 17:43] LABS: Alanine Aminotransfer (ALT/SGP 26 U/L (12-78); Albumin, Blood 1.7 g/dL (3.4-5.0); Albumin/Globulin Ratio 0.5 (0.8-1.8); Alk Phos 280 U/L (50-136); Anion Gap 8 mmol/L (6-16); Aspartate Aminotrans (AST/SGOT 28 U/L (12-37); Bilirubin, Direct 0.1 mg/dL (0.0-0.3); Bilirubin, Indirect 0.2 mg/dL (0.1-0.7); Bilirubin, Total 0.3 mg/dL (0.1-1.0); Blood Urea Nitrogen 21 mg/dL (8-24); CO2, Blood 21 mmol/L (21-32); Calcium, Blood 7.5 mg/dL (8.5-10.1); Chloride, Blood 99 mmol/L (98-108); Globulin, Blood 3.7 g/dL (2.2-4.0); Glucose, Blood 104 mg/dL (70-99); Phosphorus, Blood 3.1 mg/dL (2.5-4.9); Prealbumin, Blood 13.2 mg/dL (20.0-40.0); Sodium, Blood 128 mmol/L (136-145); Total Protein, Blood 5.4 g/dL (6.4-8.2)
[2020-07-12 18:01] LABS: Bun/Creatinine Ratio 42.5 (12.0-20.0); Creatinine, Blood 0.49 mg/dL (0.40-1.00); Glomerular Filtration Rate >60 (60-)
[2020-07-13 13:31] LABS: Triglycerides 91 mg/dL (30-160)
== END | disposition home or self-care (01) ==
LOC: LAB 16:05 → LAB SHORT 16:05
PROVIDERS: Surgery
DX: C25.9 Malignant neoplasm of pancreas, unspecified (principal); E78.5 Hyperlipidemia, unspecified
CPT/HCPCS: 80053; 82248; 83735; 84100; 84134; 84478; 85025

== ENCOUNTER → 2020-07-22 | Outpatient (CLI) | payer MEDICARE, OTHER ==
[2020-07-22 17:57] LABS: BASOPHILS ABSOLUTE AUTO 0.04 K/mm3 (0.00-0.23); BASOPHILS PERCENT AUTO 1 % (0-2); EOSINOPHILS ABSOLUTE AUTO 0.07 K/mm3 (0.00-0.68); EOSINOPHILS PERCENT AUTO 1 % (0-6); Hematocrit 25.6 % (33.0-51.0); Hemoglobin 8.2 g/dL (11.5-16.0); IMMATURE GRAN ABSOLUTE AUTO 0.05 K/mm3 (0.00-0.10); IMMATURE GRAN PERCENT AUTO 1 % (0-1); LYMPHOCYTES ABSOLUTE AUTO 2.49 K/mm3 (0.84-5.20); LYMPHOCYTES PERCENT AUTO 32 % (21-46); MONOCYTES PERCENT AUTO 13 % (4-13); Mean Corpuscular Volume 91 fL (80-100); Mean Platelet Volume 11.6 fL (9.1-12.4); NEUTROPHILS ABSOLUTE AUTO 4.08 K/mm3 (1.96-9.15); NEUTROPHILS PERCENT AUTO 53 % (41-73); Platelet Count 132 K/mm3 (150-400); RDW Standard Deviation 56.4 fL (35.1-46.3); Red Blood Cell Count 2.83 M/mm3 (3.80-5.20); White Blood Cell Count 7.73 K/mm3 (4.00-11.30)
== END | disposition home or self-care (01) ==
LOC: LAB SHORT 16:56 → LAB 16:56
PROVIDERS: Surgery
DX: C25.9 Malignant neoplasm of pancreas, unspecified (principal)
CPT/HCPCS: 85025

== ENCOUNTER → 2020-07-27 | Outpatient (CLI) | payer MEDICARE, OTHER ==
[2020-07-27 19:34] LABS: BASOPHILS ABSOLUTE AUTO 0.03 K/mm3 (0.00-0.23); BASOPHILS PERCENT AUTO 0 % (0-2); EOSINOPHILS ABSOLUTE AUTO 0.13 K/mm3 (0.00-0.68); EOSINOPHILS PERCENT AUTO 2 % (0-6); Hemoglobin 7.6 g/dL (11.5-16.0); IMMATURE GRAN ABSOLUTE AUTO 0.08 K/mm3 (0.00-0.10); IMMATURE GRAN PERCENT AUTO 1 % (0-1); LYMPHOCYTES ABSOLUTE AUTO 3.51 K/mm3 (0.84-5.20); LYMPHOCYTES PERCENT AUTO 42 % (21-46); MONOCYTES ABSOLUTE AUTO 0.84 K/mm3 (0.16-1.47); MONOCYTES PERCENT AUTO 10 % (4-13); Mean Corpuscular HGB 28.5 pg (26.0-34.0); Mean Corpuscular HGB Conc 31.7 g/dL (31.5-36.5); Mean Corpuscular Volume 90 fL (80-100); Mean Platelet Volume 10.6 fL (9.1-12.4); NEUTROPHILS ABSOLUTE AUTO 3.74 K/mm3 (1.96-9.15); NEUTROPHILS PERCENT AUTO 45 % (41-73); Platelet Count 175 K/mm3 (150-400); RDW Coefficient Variation 16.8 % (11.7-14.2); RDW Standard Deviation 55.2 fL (35.1-46.3); Red Blood Cell Count 2.67 M/mm3 (3.80-5.20); White Blood Cell Count 8.33 K/mm3 (4.00-11.30)
[2020-07-27 21:13] LABS: Magnesium, Blood 2.1 mg/dL (1.6-2.4); Prealbumin, Blood 12.4 mg/dL (20.0-40.0)
[2020-07-27 21:17] LABS: Alanine Aminotransfer (ALT/SGP 34 U/L (12-78); Albumin, Blood 1.8 g/dL (3.4-5.0); Albumin/Globulin Ratio 0.5 (0.8-1.8); Alk Phos 180 U/L (50-136); Aspartate Aminotrans (AST/SGOT 24 U/L (12-37); Bilirubin, Direct <0.1 mg/dL (0.0-0.3); Bilirubin, Indirect Unable to Calculate mg/dL (0.1-0.7); Bilirubin, Total 0.2 mg/dL (0.1-1.0); Globulin, Blood 3.9 g/dL (2.2-4.0); Total Protein, Blood 5.7 g/dL (6.4-8.2); Triglycerides 68 mg/dL (30-160)
[2020-07-28 13:46] LABS: Albumin, Blood 1.8 g/dL (3.4-5.0); Anion Gap 9 mmol/L (6-16); Blood Urea Nitrogen 21 mg/dL (8-24); Bun/Creatinine Ratio 30.8 (12.0-20.0); CO2, Blood 22 mmol/L (21-32); Calcium, Blood 7.6 mg/dL (8.5-10.1); Chloride, Blood 100 mmol/L (98-108); Creatinine, Blood 0.68 mg/dL (0.40-1.00); Glomerular Filtration Rate >60 (60-); Glucose, Blood 97 mg/dL (70-99); Phosphorus, Blood 3.9 mg/dL (2.5-4.9); Potassium, Blood 5.2 mmol/L (3.5-5.5); Sodium, Blood 131 mmol/L (136-145)
== END | disposition home or self-care (01) ==
LOC: LAB 18:23 → LAB SHORT 18:23
PROVIDERS: Surgery
DX: C25.9 Malignant neoplasm of pancreas, unspecified (principal); K31.1 Adult hypertrophic pyloric stenosis; K86.89 Other specified diseases of pancreas; E78.5 Hyperlipidemia, unspecified
CPT/HCPCS: 80069; 80076; 83735; 84134; 84478; 85025

== ENCOUNTER → 2020-08-03 | Outpatient (CLI) | payer MEDICARE, OTHER ==
[2020-08-03 17:31] LABS: BASOPHILS ABSOLUTE AUTO 0.03 K/mm3 (0.00-0.23); BASOPHILS PERCENT AUTO 0 % (0-2); EOSINOPHILS ABSOLUTE AUTO 0.17 K/mm3 (0.00-0.68); EOSINOPHILS PERCENT AUTO 2 % (0-6); Hematocrit 24.2 % (33.0-51.0); Hemoglobin 7.7 g/dL (11.5-16.0); IMMATURE GRAN ABSOLUTE AUTO 0.07 K/mm3 (0.00-0.10); IMMATURE GRAN PERCENT AUTO 1 % (0-1); LYMPHOCYTES ABSOLUTE AUTO 3.63 K/mm3 (0.84-5.20); LYMPHOCYTES PERCENT AUTO 35 % (21-46); MONOCYTES PERCENT AUTO 10 % (4-13); Mean Corpuscular HGB 28.4 pg (26.0-34.0); Mean Corpuscular HGB Conc 31.8 g/dL (31.5-36.5); Mean Corpuscular Volume 89 fL (80-100); Mean Platelet Volume 9.8 fL (9.1-12.4); NEUTROPHILS ABSOLUTE AUTO 5.56 K/mm3 (1.96-9.15); NEUTROPHILS PERCENT AUTO 53 % (41-73); Platelet Count 188 K/mm3 (150-400); RDW Coefficient Variation 16.6 % (11.7-14.2); RDW Standard Deviation 54.4 fL (35.1-46.3); Red Blood Cell Count 2.71 M/mm3 (3.80-5.20); White Blood Cell Count 10.46 K/mm3 (4.00-11.30)
[2020-08-03 19:36] LABS: Magnesium, Blood 1.9 mg/dL (1.6-2.4)
[2020-08-03 19:43] LABS: Alanine Aminotransfer (ALT/SGP 22 U/L (12-78); Albumin/Globulin Ratio 0.5 (0.8-1.8); Alk Phos 148 U/L (50-136); Anion Gap 7 mmol/L (6-16); Aspartate Aminotrans (AST/SGOT 17 U/L (12-37); Bilirubin, Direct <0.1 mg/dL (0.0-0.3); Bilirubin, Indirect Unable to Calculate mg/dL (0.1-0.7); Bilirubin, Total 0.3 mg/dL (0.1-1.0); Blood Urea Nitrogen 22 mg/dL (8-24); CO2, Blood 24 mmol/L (21-32); Calcium, Blood 7.6 mg/dL (8.5-10.1); Chloride, Blood 99 mmol/L (98-108); Creatinine, Blood 0.55 mg/dL (0.40-1.00); Globulin, Blood 3.8 g/dL (2.2-4.0); Glomerular Filtration Rate >60 (60-); Glucose, Blood 151 mg/dL (70-99); Phosphorus, Blood 3.7 mg/dL (2.5-4.9); Potassium, Blood 4.6 mmol/L (3.5-5.5); Sodium, Blood 130 mmol/L (136-145); Total Protein, Blood 5.8 g/dL (6.4-8.2); Triglycerides 64 mg/dL (30-160)
== END | disposition home or self-care (01) ==
LOC: LAB SHORT 16:29 → LAB 16:29
DX: Z45.2 Encounter for adjustment and management of vascular access device (principal); C25.9 Malignant neoplasm of pancreas, unspecified; E43 Unspecified severe protein-calorie malnutrition; I69.398 Other sequelae of cerebral infarction; E78.5 Hyperlipidemia, unspecified; K31.1 Adult hypertrophic pyloric stenosis
CPT/HCPCS: 80053; 82248; 83735; 84100; 84134; 84478; 85025

== ENCOUNTER → 2020-08-11 | Outpatient (CLI) | payer MEDICARE, OTHER ==
[2020-08-11 20:11] LABS: BASOPHILS ABSOLUTE AUTO 0.05 K/mm3 (0.00-0.23); BASOPHILS PERCENT AUTO 0 % (0-2); EOSINOPHILS ABSOLUTE AUTO 0.34 K/mm3 (0.00-0.68); EOSINOPHILS PERCENT AUTO 3 % (0-6); Hematocrit 24.5 % (33.0-51.0); Hemoglobin 7.6 g/dL (11.5-16.0); IMMATURE GRAN ABSOLUTE AUTO 0.09 K/mm3 (0.00-0.10); IMMATURE GRAN PERCENT AUTO 1 % (0-1); LYMPHOCYTES ABSOLUTE AUTO 4.69 K/mm3 (0.84-5.20); LYMPHOCYTES PERCENT AUTO 40 % (21-46); MONOCYTES ABSOLUTE AUTO 1.28 K/mm3 (0.16-1.47); MONOCYTES PERCENT AUTO 11 % (4-13); Mean Corpuscular HGB 27.6 pg (26.0-34.0); Mean Corpuscular Volume 89 fL (80-100); NEUTROPHILS ABSOLUTE AUTO 5.39 K/mm3 (1.96-9.15); NEUTROPHILS PERCENT AUTO 46 % (41-73); Platelet Count 163 K/mm3 (150-400); RDW Coefficient Variation 16.6 % (11.7-14.2); Red Blood Cell Count 2.75 M/mm3 (3.80-5.20); White Blood Cell Count 11.84 K/mm3 (4.00-11.30)
[2020-08-11 20:31] LABS: Magnesium, Blood 2.1 mg/dL (1.6-2.4)
[2020-08-11 20:35] LABS: Alanine Aminotransfer (ALT/SGP 21 U/L (12-78); Albumin, Blood 2.1 g/dL (3.4-5.0); Albumin/Globulin Ratio 0.6 (0.8-1.8); Alk Phos 126 U/L (50-136); Anion Gap 8 mmol/L (6-16); Aspartate Aminotrans (AST/SGOT 18 U/L (12-37); Bilirubin, Direct 0.1 mg/dL (0.0-0.3); Bilirubin, Indirect 0.1 mg/dL (0.1-0.7); Bilirubin, Total 0.2 mg/dL (0.1-1.0); Blood Urea Nitrogen 22 mg/dL (8-24); Bun/Creatinine Ratio 41.9 (12.0-20.0); CO2, Blood 24 mmol/L (21-32); Calcium, Blood 7.6 mg/dL (8.5-10.1); Chloride, Blood 100 mmol/L (98-108); Creatinine, Blood 0.53 mg/dL (0.40-1.00); Globulin, Blood 3.6 g/dL (2.2-4.0); Glomerular Filtration Rate >60 (60-); Glucose, Blood 141 mg/dL (70-99); Phosphorus, Blood 4.2 mg/dL (2.5-4.9); Potassium, Blood 4.9 mmol/L (3.5-5.5); Prealbumin, Blood 15.5 mg/dL (20.0-40.0); Sodium, Blood 132 mmol/L (136-145); Total Protein, Blood 5.7 g/dL (6.4-8.2); Triglycerides 40 mg/dL (30-160)
== END | disposition home or self-care (01) ==
LOC: LAB 17:44 → LAB SHORT 17:44
DX: C25.9 Malignant neoplasm of pancreas, unspecified (principal); K31.1 Adult hypertrophic pyloric stenosis; I69.398 Other sequelae of cerebral infarction; K21.9 Gastro-esophageal reflux disease without esophagitis; E43 Unspecified severe protein-calorie malnutrition
CPT/HCPCS: 80053; 82248; 83735; 84100; 84134; 84478; 85025

== ENCOUNTER → 2020-08-17 | Outpatient (CLI) | payer MEDICARE, OTHER ==
[2020-08-17 19:51] LABS: BASOPHILS ABSOLUTE AUTO 0.03 K/mm3 (0.00-0.23); BASOPHILS PERCENT AUTO 0 % (0-2); EOSINOPHILS ABSOLUTE AUTO 0.37 K/mm3 (0.00-0.68); EOSINOPHILS PERCENT AUTO 4 % (0-6); Hematocrit 25.6 % (33.0-51.0); Hemoglobin 8.1 g/dL (11.5-16.0); IMMATURE GRAN ABSOLUTE AUTO 0.04 K/mm3 (0.00-0.10); IMMATURE GRAN PERCENT AUTO 0 % (0-1); LYMPHOCYTES ABSOLUTE AUTO 3.21 K/mm3 (0.84-5.20); LYMPHOCYTES PERCENT AUTO 32 % (21-46); MONOCYTES PERCENT AUTO 9 % (4-13); Mean Corpuscular HGB 28.2 pg (26.0-34.0); Mean Corpuscular HGB Conc 31.6 g/dL (31.5-36.5); Mean Corpuscular Volume 89 fL (80-100); Mean Platelet Volume 11.5 fL (9.1-12.4); NEUTROPHILS ABSOLUTE AUTO 5.52 K/mm3 (1.96-9.15); NEUTROPHILS PERCENT AUTO 55 % (41-73); Platelet Count 133 K/mm3 (150-400); RDW Coefficient Variation 16.8 % (11.7-14.2); RDW Standard Deviation 54.9 fL (35.1-46.3); Red Blood Cell Count 2.87 M/mm3 (3.80-5.20); White Blood Cell Count 10.07 K/mm3 (4.00-11.30)
[2020-08-17 20:11] LABS: Magnesium, Blood 2.1 mg/dL (1.6-2.4)
[2020-08-17 20:16] LABS: Alanine Aminotransfer (ALT/SGP 18 U/L (12-78); Albumin, Blood 2.3 g/dL (3.4-5.0); Albumin/Globulin Ratio 0.6 (0.8-1.8); Alk Phos 112 U/L (50-136); Anion Gap 11 mmol/L (6-16); Aspartate Aminotrans (AST/SGOT 18 U/L (12-37); Bilirubin, Direct <0.1 mg/dL (0.0-0.3); Bilirubin, Indirect Unable to Calculate mg/dL (0.1-0.7); Bilirubin, Total 0.3 mg/dL (0.1-1.0); Blood Urea Nitrogen 19 mg/dL (8-24); Bun/Creatinine Ratio 27.5 (12.0-20.0); CO2, Blood 21 mmol/L (21-32); Calcium, Blood 8.2 mg/dL (8.5-10.1); Chloride, Blood 103 mmol/L (98-108); Creatinine, Blood 0.69 mg/dL (0.40-1.00); Globulin, Blood 3.9 g/dL (2.2-4.0); Glomerular Filtration Rate >60 (60-); Glucose, Blood 114 mg/dL (70-99); Phosphorus, Blood 4.1 mg/dL (2.5-4.9); Potassium, Blood 4.3 mmol/L (3.5-5.5); Prealbumin, Blood 14.5 mg/dL (20.0-40.0); Sodium, Blood 135 mmol/L (136-145); Total Protein, Blood 6.2 g/dL (6.4-8.2)
== END | disposition home or self-care (01) ==
LOC: LAB SHORT 18:50 → LAB 18:50
DX: C25.9 Malignant neoplasm of pancreas, unspecified (principal)
CPT/HCPCS: 80053; 82248; 83735; 84100; 84134; 85025